=== PATIENT | female | born 1960 | race Caucasian/White ===

== ENCOUNTER → 2019-09-28 | Outpatient (CLI) | payer SELFPAY ==
[~2019-09-28] VITALS: Ht 157 cm; Wt 115.0 kg
[~2019-09-28] MED LIST: CATHETER FLUSH 10 ML SYR IV PRN; REGADENOSON 0.4 MG/5 ML SYR (LEXISCAN) IV ONE
[2019-09-28 09:36] VITALS: BP 138/90
--- NOTE | 2019-09-28 17:31 | STRESS TEST ---
DATE OF SERVICE: 09/28/2019 RESTING AND POST REGADENOSON TECHNETIUM-99M TETROFOSMIN SPECT CT IMAGING Baseline images were carried out after injection of 10.98 mCi of technetium-99m Tetrofosmin. This was followed by 0.4 mg regadenoson and 31.2 mCi of technetium-99m Tetrofosmin for stress imaging. The electrocardiogram showed sinus rhythm at baseline. It did not change significantly with the regadenoson infusion. The patient did have chest discomfort following regadenoson infusion, which resolved in a few minutes. Review of images at rest and following stress does not indicate any distinct perfusion defects consistent with significant myocardial ischemia or infarction. Gated images show normal global left ventricular systolic function with normal regional wall motion. Left ventricular ejection fraction is calculated to be 70%. Left ventricular end diastolic volume is 51 mL. TID is absent (1.04). CONCLUSIONS: 1. No evidence of any significant myocardial ischemia or infarction on this study. 2. Normal regional wall motion. 3. Normal global left ventricular systolic function with a calculated ejection fraction approximately 70%. Job ID: [id number] DocumentID: [id number] Dictated Date: 09/28/2019 15:08:53 [employer]otive [employer] Date: 09/28/2019 17:30:20 Dictated By: KAREN COX MD, MA, FACP, FACC,
== END ==
LOC: CARD 07:49
PROVIDERS: ATTEND Internal Medicine Cardiovascular Disease
DX: E11.9 Type 2 diabetes mellitus without complications (principal); R07.9 Chest pain, unspecified; R06.02 Shortness of breath; R00.2 Palpitations; E66.9 Obesity, unspecified
CPT/HCPCS: 78452; 93017; 93225; 93226; 93306